=== PATIENT | male | born 1990 | race African-American/Black ===

== ENCOUNTER 2018-08-21 18:21 | Emergency (ER) | payer OTHER ==
[~2018-08-21] VITALS: Ht 182.9 cm; Wt 73.5 kg
[2018-08-21] MEDS ORDERED: IBUPROFEN 400 MG TAB PO ONE (19:15)
[2018-08-21] MEDS ORDERED: ACETAMINOPHEN 325 MG TAB PO ONE (19:15)
== END 2018-08-21 19:50 | disposition home or self-care (01) ==
LOC: FSED 18:21
DX: R50.9 Fever, unspecified (principal); R05 Cough; J11.1 Influenza due to unidentified influenza virus with other respiratory manifestations; J31.0 Chronic rhinitis
CPT/HCPCS: 83518; 87400; 99283